=== PATIENT | female | born 1965 | race Caucasian/White ===

== ENCOUNTER 2016-11-30 14:41 | Emergency (ER) | payer OTHER ==
[~2016-11-30] VITALS: Ht 170.2 cm; Wt 99.1 kg
[~2016-11-30 14:41] MED LIST: ASPI-973 PO; GABA-500 PO; LEVO112T4 PO; OXYC30TA77 PO; OXYC5CAP4 PO; PANT40TA3 PO
[2016-11-30 14:51] VITALS: BP 137/78; PULSE 54; RESP 18; O2SAT 100
[2016-11-30] MEDS ORDERED: 0.9% Sodium Chloride 1,000 ML IV ONE (15:34)
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
[2016-11-30 16:00] LABS: BASOPHILS % (AUTO) 1.4 % (0-3); EOSINOPHILS % (AUTO) 4.5 % (0-5); MONOCYTES % (AUTO) 10.3 % (4-12); Mean Corpuscular Hemoglobin 27.7 pg (27.0-35.0); Mean Corpuscular Volume 85.8 fL (81-100); NEUTROPHILS % (AUTO) 53.3 % (40-74); Platelet Count 289 bil/L (150-400)
[2016-11-30 16:17] LABS: APPEARANCE,URINE HAZY (CLEAR,HAZY); COLOR,URINE STRAW (YELLOW); OCCULT BLOOD,URINE NEGATIVE (NEGATIVE); UROBILINOGEN,URINE NORMAL (NORMAL)
[2016-11-30 16:29] LABS: Magnesium 2.3 mg/dL (1.6-2.6)
[2016-11-30 16:30] LABS: TROPONIN T < 0.010 ug/L (0.0-0.011)
--- NOTE | 2016-11-30 16:54 | DRSVH ---
PROCEDURE: X-RAY CHEST ONE VIEW, PORTABLE ([id number]) INDICATIONS: SHORT OF BREATH TECHNIQUE: One view of the chest was acquired. COMPARISON: [facility], , CHEST 2VW, 04/30/2015, 7:59. [facility], , [address]INA [address] 1VW (PORTABLE), 04/29/2015, 18:19. [facility], , CHEST 1VW (PORTABLE), 04/26/2015, 11 :25. [facility], , CHEST 1VW (PORTABLE), 07/21/2013, 6:44. FINDINGS: Surgical changes and devices: Left-sided pacer. Lungs and pleura: No pleural effusions or pneumothorax. Lungs are clear. Mediastinum: Mediastinal contours appear normal. Heart size is normal. Bones and chest wall: No suspicious bony lesions. Overlying soft tissues appear unremarkable. IMPRESSION: No acute process. Dictated by: Mohamud Singh M.D. on 11/30/2016 at 16:52 Approved by: Mohamud Singh M.D. on 11/30/2016 at 16:52
[2016-11-30 18:14] VITALS: BP 140/87; PULSE 60; RESP 16; O2SAT 99
== END 2016-11-30 18:15 | disposition home or self-care (01) ==
LOC: SED 14:41
DX: R06.02 Shortness of breath (principal); R07.89 Other chest pain; K21.9 Gastro-esophageal reflux disease without esophagitis; E03.9 Hypothyroidism, unspecified; Z95.0 Presence of cardiac pacemaker; Z79.82 Long term (current) use of aspirin; Z88.5 Allergy status to narcotic agent; Z88.6 Allergy status to analgesic agent
CPT/HCPCS: 36415; 71010; 80053; 81000; 83735; 83880; 84484; 85025; 93005; 99285; J7030

== ENCOUNTER 2017-04-06 10:37 | Emergency (ER) | payer OTHER ==
[~2017-04-06] VITALS: Ht 172.7 cm; Wt 84.1 kg
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
[2017-04-06 10:50] VITALS: BP 136/85; PULSE 61; RESP 18; O2SAT 100
[2017-04-06 11:43] LABS: BASOPHILS % (AUTO) 1.6 % (0-3); EOSINOPHILS % (AUTO) 1.3 % (0-5); MONOCYTES % (AUTO) 10.7 % (4-12); Mean Corpuscular Hemoglobin 27.9 pg (27.0-35.0); Mean Corpuscular Volume 86.5 fL (81-100); NEUTROPHILS % (AUTO) 66.1 % (40-74); Platelet Count 288 bil/L (150-400)
[2017-04-06 12:09] VITALS: BP 121/56; PULSE 64; RESP 15; O2SAT 99
[2017-04-06 12:19] LABS: TROPONIN T 0.01 ug/L (0.0-0.011)
[2017-04-06 12:49] VITALS: BP 121/56; PULSE 64; RESP 15; O2SAT 99
== END 2017-04-06 12:51 | disposition home or self-care (01) ==
LOC: SED 10:37
DX: F43.0 Acute stress reaction (principal); G47.00 Insomnia, unspecified; R25.1 Tremor, unspecified; R68.84 Jaw pain; R06.02 Shortness of breath; R07.89 Other chest pain; K21.9 Gastro-esophageal reflux disease without esophagitis; E03.9 Hypothyroidism, unspecified; Z95.0 Presence of cardiac pacemaker; Z79.82 Long term (current) use of aspirin; Z88.5 Allergy status to narcotic agent; Z88.8 Allergy status to other drugs, medicaments and biological substances

== ENCOUNTER 2017-04-16 18:33 | Emergency (ER) | payer OTHER ==
[2017-04-16 18:44] VITALS: BP 126/80; PULSE 64; RESP 16; O2SAT 100
--- NOTE | 2017-04-16 19:25 | ED.REPORT ---
HPI-Medication Refill Date of Service April 16, 2017 ED Provider: History of Present Illness: takes oxycontin 30 mg bid provided by tom. taking oxycodone now. taking it for peripheral neuropathy. last took oxycontin this am. did not call Dr. santos office. patient reports she has a prescription but the insurance will not fill it. Nursing Notes Stated Complaint: MEDICATION REQUEST Chief Complaint: General Complaint Nursing Notes Reviewed: Yes Allergies: Coded Allergies: acetaminophen (Verified Allergy, Mild, Dizziness, 04/06/17) oxycodone (Verified Allergy, Mild, Dizziness, 04/06/17) Scheduled Aspirin (Aspirin) 81 Mg Tablet.dr 81 MG PO HS Gabapentin (Gabapentin) 100 Mg Capsule 3 TAB PO HS Levothyroxine (Levothyroxine) 112 Mcg Tablet 112 MCG PO DAILY Oxycodone ER (Oxycontin) 30 Mg Tab.er.12h 30 MG PO BID Pantoprazole DR (Pantoprazole DR) 40 Mg Tablet.dr 40 MG PO DAILY Scheduled PRN oxyCODONE (oxyCODONE) 5 Mg Capsule 5 MG PO TID PRN PRN For Breakthrough Pain General Time Seen by Provider: 19:19 Chief Complaint Ran out of medication (last dose of oxycontin this am) Hx Obtained From: Patient Onset Occurred: 13 - 16 hours ago Past Medical History 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 Past Medical History Peripheral neuropathy in bilateral lower extremities Chronic back pain Hypothyroidism GERD Past Surgical History Pacemaker placement secondary to dramatic bradycardia Smoking History Never Smoker Social History Alcohol Use: Denies alcohol use Drug Use: Denies drug use Ambulatory Status Independent Review of Systems Basic Review of Systems Eyes: Vision NL, No discharge Hematologic: No bleeding, No bruising Skin: No rash, No itch Psychiatric: Normal thought content Physical Exam Initial Vital Signs Vital Signs (First) Date Time Temp Pulse Resp B/P Pulse Ox O2 Delivery O2 Flow Rate FiO2 04/16/17 18:44 36.6 64 16 126/80 100 Room Air Initial VS: Reviewed, Vital signs normal General/Constitutional: Well-developed, Well-nourished Head / Eyes: Atraumatic, Normocephalic, PERRL ENT: Mucous membranes moist, Conjunctiva normal, No scleral icterus Neck: Supple, Non-tender, Full range of motion Respiratory: Breath sounds normal, Clear to auscultation, No respiratory distress Cardiovascular: Regular rate & rhythm, Heart sounds normal, Intact distal pulses Abdomen / GI: Soft, Non-tender, No guarding, No rebound, No distention Back: No CVA tenderness Lymphatic: No lymphadenopathy Extremities: Vascular intact, Neuro intact, No swelling, No tenderness Skin: Warm, Dry, No cyanosis Neurologic: Alert, Oriented, Nonfocal Psychiatric: Mood/affect normal, Behavior normal, Normal thought content General/Constitutional: Awake, Alert, No acute distress, Well appearing, Well developed, Well hydrated, Well nourished, Cooperative, Not toxic appearing Respiratory / Chest: Atraumatic, Breath sounds NL, Breath sounds = bilat, No respiratory distress Cardiovascular: Heart rate NL, Regular rhythm, Heart sounds NL, No gallop Re-Evaluation & [facility] [place] Med Decision/Clinical Course 51 year old female here for refill on oxycontin. Patient states she has a refill at [facility] but insurance issue is holding up the filling. Advised patient that if she has a valid prescription she can get 1 or 2 days worth. Encouraged patient to discuss alternatives. No sign of SI or personality disorder. Patient Discharge & Departure Impression: Primary Impression: Medication refill Disposition: Home Additional Instructions: We are not able to refill your oxycontin. Please check with [facility] tomorrow to see if you can purchase the medication tomorrow. Referrals: Valentino Santos MD (PCP) EDSupervising Provider for APC: Fabian Patel DO copies to: Valentino Santos MD, Sue ARNP April 16, 2017 19:25
== END 2017-04-16 20:06 | disposition home or self-care (01) ==
LOC: SED 18:33
DX: Z76.0 Encounter for issue of repeat prescription (principal); E03.9 Hypothyroidism, unspecified; K21.9 Gastro-esophageal reflux disease without esophagitis; M54.5 Low back pain; Z95.0 Presence of cardiac pacemaker; Z79.82 Long term (current) use of aspirin; Z88.5 Allergy status to narcotic agent; Z88.6 Allergy status to analgesic agent